=== PATIENT | female | born 1995 | race Caucasian/White ===

== ENCOUNTER 2016-06-26 12:35 | Emergency (ER) | payer OTHER ==
[2016-06-26 14:22] LABS: Appearance,Urine Clear (Clear); Bilirubin,Urine Negative (Negative); Glucose,Urine (UA) Negative (Negative); Ketones,Urine Negative (Negative); Leukocyte Esterase,Urine Negative (Negative); Nitrite,Urine Negative (Negative); PH, Urine 6.5 (5.0-8.0); Protein,Urine Negative (Negative); Specific Gravity,Urine 1.025 (1.001-1.035); UA Billing (MACRO vs. MICRO) CHEM; Urobilinogen,Urine <2.0 mg/dL (<2.0)
--- NOTE | 2016-06-26 14:34 | ED ---
Female Urogenital HPI - General Chief complaint: Vaginal Bleeding Stated complaint: Female Time Seen by Provider: 06/26/16 14:07 Source: patient, RN notes reviewed Mode of arrival: ambulatory Limitations: no limitations - History of Present Illness Initial comments: 20-year-old female presents emergency Department chief complaint of concern for . Patient states she started her menstrual period yesterday was light and spotting and then today it was heavier than normal. Patient states she is concerned that she may be so she thought that she should be seen. Patient states did not do any tests at home. Patient denies any abdominal pain any nausea or vomiting. Patient states she just needs now she is or not.Patient denies any recent fever, chills, shortness of breath , chest pain, back pain, abdominal pain, nausea vomiting, numbness or tingling, dysuria or hematuria, constipation or diarrhea, headaches or visual changes, or any other current symptoms. Last Menstrual Period: 05/27/16 - Related Data Home Medications Medication Instructions Recorded Confirmed No Known Home Medications [No 06/26/16 06/26/16 Known Home Medications] Allergies Allergy/AdvReac Type Severity Reaction Status Date / Time cat dander Allergy Swelling Verified 06/26/16 14:17 soybean AdvReac Itching Verified 06/26/16 14:17 Review of Systems ROS Statement: Those systems with pertinent positive or pertinent negative responses have been documented in the HPI. ROS Other: All systems not noted in ROS Statement are negative. Past Medical History Past Medical History: No Reported History Additional Past Medical History / Comment(s): CLUB FEET AT History of Any Multi-Drug Resistant Organisms: None Reported Past Surgical History: No Surgical Hx Reported Past Psychological History: Depression Smoking Status: Never smoker Past Alcohol Use History: None Reported Past Drug Use History: None Reported General Exam Limitations: no limitations General appearance: alert, in no apparent distress ENT exam: Present: normal exam, mucous membranes moist Neck exam: Present: normal inspection. Absent: tenderness, meningismus, lymphadenopathy Respiratory exam: Present: normal lung sounds bilaterally. Absent: respiratory distress, wheezes, rales, rhonchi, stridor Cardiovascular Exam: Present: regular rate, normal rhythm, normal heart sounds. Absent: systolic murmur, diastolic murmur, rubs, gallop, clicks Back exam: Present: normal inspection Neurological exam: Present: alert, oriented X3, CN II-XII intact. Absent: motor sensory deficit Psychiatric exam: Present: normal affect, normal mood Skin exam: Present: warm, dry, intact, normal color. Absent: rash Course Vital Signs 06/26/16 13:40 Temperature 98.0 F Pulse Rate 81 Respiratory 18 Rate Blood Pressure 121/75 O2 Sat by Pulse 99 Oximetry Medical Decision Making - Medical Decision Making 20-year-old female presents for concerns with . At this time we discussed that her urine is showing that she is not . We did discuss following up with a repeat test in one week to reevaluate. At this time patient was offered a pelvic exam blood work to further evaluate her vaginal bleeding. She states that she believes is just her menstrual cycle. She denies any heavy bleeding such as going through a pad an hour so she said that she does feel comfortable going home. We discussed return parameters and follow-up and all patient's questions. She stated that she understood. She will be discharged. - Lab Data Lab Results 06/26/16 06/26/16 Range/Units 13:40 13:40 Urine Color Yellow Urine Appearance Clear (Clear) Urine pH 6.5 (5.0-8.0) Ur Specific [place] 1.025 (1.001-1.035) Urine Protein Negative (Negative) Urine Glucose (UA) Negative (Negative) Urine Ketones Negative (Negative) Urine Blood Negative (Negative) Urine Nitrate Negative (Negative) Urine Bilirubin Negative (Negative) Urine Urobilinogen <2.0 (<2.0) mg/dL Ur Leukocyte Esterase Negative (Negative) Urine HCG, Qual Not Detected (Not Detectd) Disposition Clinical Impression: Menorrhagia Disposition: HOME SELF-CARE Condition: Stable Instructions: Menstruation (ED) Additional Instructions: Please use medication as discussed. Please follow up with family doctor if symptoms have not improved over the next two days. Please return to the emergency room if your symptoms increase or worsen or for any other concerns. Referrals: None,Stated [Primary Care Provider] - 1-2 days Ally Lazar MD [STAFF PHYSICIAN] - 1-2 days Time of Disposition: 14:34
[2016-06-26 14:48] VITALS: BP 123/79; PULSE 94; RESP 20; TEMP 98
== END 2016-06-26 14:49 | disposition home or self-care (01) ==
LOC: EC 12:35
DX: N92.0 Excessive and frequent menstruation with regular cycle (principal); Z91.048 Other nonmedicinal substance allergy status; Z91.018 Allergy to other foods
CPT/HCPCS: 81003; 81025; 99284

== ENCOUNTER 2018-05-01 03:43 | Outpatient (CLI) | payer OTHER ==
[2018-05-01] MEDS ORDERED: ONDANSETRON 4 MG/2 ML VIAL IVP STA (03:57)
[2018-05-01] MEDS ORDERED: LACTATED RINGERS 1,000 ML IV SCH (04:00)
[2018-05-01 04:13] LABS: Appearance,Urine Cloudy (Clear); Bilirubin,Urine Negative (Negative); Blood,Urine Negative (Negative); Color,Urine Yellow; Glucose,Urine (UA) Negative (Negative); Ketones,Urine 1+ (Negative); Leukocyte Esterase,Urine Large (Negative); Mucus,Urine Rare /hpf; Nitrite,Urine Negative (Negative); PH, Urine 6.5 (5.0-8.0); Protein,Urine Trace (Negative); RBC,Urine 6 /hpf (0-5); Specific Gravity,Urine 1.012 (1.001-1.035); Squamous Epithelial Cell,Urine 32 /hpf (0-4); Urobilinogen,Urine <2.0 mg/dL (<2.0); WBC,Urine 10 /hpf (0-5)
[2018-05-01 04:15] LABS: Basophils % (A) 0 %; Eosinophils # (A) 0.1 k/uL (0-0.7); Eosinophils % (A) 1 %; HCT 33.3 % (34.0-46.0); HGB 11.8 gm/dL (11.4-16.0); Lymphocytes # (A) 1.2 k/uL (1.0-4.8); Lymphocytes % (A) 13 %; MCH 33.1 pg (25.0-35.0); MCHC 35.3 g/dL (31.0-37.0); MCV 93.9 fL (80.0-100.0); Monocytes # (A) 0.4 k/uL (0-1.0); Monocytes % (A) 4 %; Neutrophils # (A) 7.6 k/uL (1.3-7.7); Neutrophils % (A) 80 %; Platelet Count 180 k/uL (150-450); RBC 3.55 m/uL (3.80-5.40); RDW 13.4 % (11.5-15.5); WBC 9.6 k/uL (3.8-10.6)
[2018-05-01 04:34] VITALS: BP 124/84; PULSE 102; RESP 16; TEMP 98
--- NOTE | 2018-05-05 18:23 | P.MSEPDOC ---
Presenting Problems - Arrival Data Date of Arrival on Unit: 05/01/18 Time of Arrival on Unit: 03:43 Mode of Transport: Wheelchair - Complaint OB-Reason for Admission/Chief Complaint: Acute Nausea/Vomiting, Headache Comment: nausea since this weekend, headache on and off Medical History - Information : 1 Para: 0 Term: 0 : 0 Abortions: Spontaneous or Elective: 0 Number of Living Children: 0 - Gestational Age Gestational Age by MEHUL (wks/days): 24 Weeks and 1 Days Review of Systems - Review of Systems Constitutional: No problems Breast: No problems ENT: No problems Cardiovascular: No problems Respiratory: No problems Gastrointestinal: No problems Genitourinary: No problems Musculoskeletal: No problems Neurological: No problems Skin: No problems Vital Signs - Temperature Temperature: 98.0 F Temperature Source: Temporal Artery Scan - Pulse Right Sitting Brachial Pulse Rate: 102 Pulse Assessment Method: Automatic Cuff - Respirations Respiratory Rate: 16 O2 Sat by Pulse Oximetry: 100 - Blood Pressure Right Arm Blood Pressure: 124/84 Blood Pressure Mean: 97 Blood Pressure Source: Automatic Cuff Medical Screen Scoring (Pre) - Cervical Exam Dilation: Exam Deferred Effacement: Exam Deferred Membranes: Intact - Uterine Contractions Frequency: N/A - Maternal Vital Signs Maternal Temperature: N/A Maternal Blood Pressure: N/A Signs of Preeclampsia: N/A Maternal Respirations: N/A - Maternal Trauma Maternal Trauma: N/A - Assessment Baseline FHR: 140 Heart Rate - NICHD Category: Category I (Normal) = 0 Position: N/A Station: N/A - Total Score Total Score (Pre): 0 - Level of Risk Level of Risk: Low (0-5) Physician Notification (Pre) - Physician Notified Physician Notified Date: 05/01/18 Physician Notified Time: 04:00 Physician/Practitioner Notifed:: Tremramos New Order Received: Yes - Notification Comment Comment: orders for IV bolus of LR, CBC, UA and IV zofran 4 mg Disposition - Disposition OB Disposition: Discharge to home, Written follow up instructions reviewed Discharge Date: 05/01/18 Discharge Time: 04:50 I agree with the RN Medical Screening Exam: Yes Risk & Benefit of care provided described in d/c instruction: Yes Diagnosis: VOMITING OF , UNSPECIFIED
== END 2018-05-01 04:50 | disposition home or self-care (01) ==
LOC: FBPOP 03:43
PROVIDERS: ATTEND Obstetrics & Gynecology Obstetrics
DX: O21.2 Late vomiting of pregnancy (principal); Z3A.24 24 weeks gestation of pregnancy
CPT/HCPCS: 96360; 96375; 85025; 81001; G0463; J2405; 99214

== ENCOUNTER 2018-08-24 14:48 | Inpatient (IN) | payer OTHER ==
[2018-08-24] MEDS ORDERED: DINOPROSTONE 10 MG INSERT.ER VAGINAL ONE (14:53)
[2018-08-24] MEDS ORDERED: BUTORPHANOL 1 MG/ML 1 ML VIAL IV PRN (14:53)
[2018-08-24] MEDS ORDERED: LACTATED RINGERS 1,000 ML IV SCH (15:00)
[2018-08-24 15:05] VITALS: BMI 39.4
--- NOTE | 2018-08-24 17:19 | P.HPOB ---
History of Present Illness H&P Date: 08/24/18 Chief Complaint: IUP @ 40 5/7 weeks This is a 23-year-old 1 para 0 at 40-5/7 weeks that presents to labor and delivery for induction of labor secondary to postdates. Patient was seen in the office today NST was done reassuring but nonreactive modified BPP was done o nce again reassuring. Patient presented to labor and delivery reactive NST was obtained. Patient denies contractions loss of fluid or vaginal bleeding. Patient has been receiving routine care with myself. On by mouth bloodwork should a blood type of A+, rubella immune, RPR nonreactive, hepatitis B surface antigen negative, HIV negative, GBS negative. She did fail her 1 hour Glucola with a result of 157 and subsequently passed her 3 hour GTT. Review of Systems Constitutional: Denies chills, Denies fatigue, Denies fever Ears, nose, mouth and throat: Denies headache Cardiovascular: Reports leg edema Respiratory: Denies dyspnea Gastrointestinal: Denies constipation, Denies diarrhea, Denies nausea, Denies vomiting Genitourinary: Reports Past Medical History Past Medical History: No Reported History Additional Past Medical History / Comment(s): CLUB FEET AT History of Any Multi-Drug Resistant Organisms: None Reported Past Surgical History: No Surgical Hx Reported Past Anesthesia/Blood Transfusion Reactions: No Reported Reaction Past Psychological History: Anxiety, Depression Smoking Status: Current some day smoker Past Alcohol Use History: None Reported Past Drug Use History: None Reported - Past Family History Mother Family Medical History: No Reported History Medications and Allergies Allergies Allergy/AdvReac Type Severity Reaction Status Date / Time cat dander Allergy Swelling Verified 05/01/18 03:52 soybean AdvReac Itching Verified 05/01/18 03:52 Exam Osteopathic Statement: *. No significant issues noted on an osteopathic structural exam other than those noted in the History and Physical/Consult. Vital Signs Temp Pulse Resp BP 08/24/18 14:52 96.8 F L 72 14 128/73 Intake and Output 08/24/18 08/24/18 08/24/18 06:59 14:59 22:59 Other: Weight 104.326 kg Started physical exam is performed in this patient in general this a well- nourished well-developed female in no acute distress. Patient notes nonlabored breathing in her heart has a regular rate and rhythm, her abdomen is noted be gravid and appropriate for gestational age. heart tones are reactive category 1, on cervical exam she is 1-2, 50, -3 soft and anterior, Cervidil was placed without difficulty. Assessment and Plan (1) Term Current Visit: Yes Status: Acute Code(s): Z34.80 - ENCOUNTER FOR SUPRVSN OF NORMAL , UNSP TRIMESTER SNOMED Code(s): 17936042 Plan: Induction of labor was begun with Cervidil, we'll plan Pitocin augmentation in the morning after Cervidil is removed.
[2018-08-24 17:31] LABS: Basophils % (A) 0 %; Eosinophils # (A) 0.1 k/uL (0-0.7); Eosinophils % (A) 1 %; HCT 34.6 % (34.0-46.0); HGB 10.8 gm/dL (11.4-16.0); Hypochromasia Slight; Lymphocytes # (A) 1.6 k/uL (1.0-4.8); Lymphocytes % (A) 21 %; MCH 27.1 pg (25.0-35.0); MCHC 31.3 g/dL (31.0-37.0); MCV 86.6 fL (80.0-100.0); Monocytes # (A) 0.5 k/uL (0-1.0); Monocytes % (A) 7 %; Neutrophils # (A) 5.1 k/uL (1.3-7.7); Neutrophils % (A) 68 %; Platelet Count 192 k/uL (150-450); RBC 3.99 m/uL (3.80-5.40); RDW 14.8 % (11.5-15.5); WBC 7.4 k/uL (3.8-10.6)
[2018-08-25] MEDS ORDERED: TERBUTALINE 1 MG/ML VIAL SQ PRN (05:50)
[2018-08-25] MEDS ORDERED: CARBOPROST TROMETHAMINE 250 MCG/ML 1 ML AMP IM PRN (05:50)
[2018-08-25] MEDS ORDERED: OXYTOCIN 10 UNIT/ML 1 ML VIAL IM PRN (05:50)
[2018-08-25] MEDS ORDERED: LIDOCAINE 0.5% (PF) 5 MG/ML (50 ML SDV) SQ PRN (05:50)
[2018-08-25] MEDS ORDERED: METHYLERGONOVINE 0.2 MG/ML 1 ML AMP IM PRN (05:50)
[2018-08-25] MEDS: LACTATED RINGERS 1,000 ML IV SCH ×3 (05:55→23:34)
[2018-08-25] MEDS: OXYTOCIN 30 UNITS/500 ML NS 30 UNIT in SALINE 1 500ML.BAG IV SCH (05:56)
[2018-08-25] MEDS: BUTORPHANOL 1 MG/ML 1 ML VIAL IV PRN ×2 (13:25→15:32)
[2018-08-25] MEDS ORDERED: ceFAZolin IN SWFI 2 GM/20 ML SYRINGE IVP ONE (16:53)
[2018-08-25] MEDS ORDERED: CITRIC ACID-SODIUM CITRATE 15 ML CUP PO ONE (16:53)
[2018-08-25] MEDS ORDERED: ePHEDrine SULFATE/0.9% NACL/PF 50 MG/5 ML SYRINGE IV ONE (17:10)
[2018-08-25] MEDS ORDERED: ONDANSETRON 4 MG/2 ML VIAL ONE (17:10)
[2018-08-25] MEDS ORDERED: OXYTOCIN 10 UNIT/ML 1 ML VIAL ONE (17:10)
[2018-08-25] MEDS ORDERED: MORPHINE SULFATE (PF) 0.3 MG/0.3 ML SYR ONE (17:10)
[2018-08-25] MEDS ORDERED: ACETAMINOPHEN IV (For NPO) 1,000 MG in EMPTY BAG 1 BAG IVPB ONE (17:59)
[2018-08-25] MEDS ORDERED: METOCLOPRAMIDE 5 MG/ML 2 ML VIAL IVP PRN (17:59)
[2018-08-25] MEDS ORDERED: diphenhydrAMINE 50 MG/ML 1 ML VIAL IVP PRN (17:59)
[2018-08-25] MEDS ORDERED: NALOXONE 0.4 MG/ML 1 ML VIAL IV PRN (17:59)
[2018-08-25] MEDS ORDERED: diphenhydrAMINE 25 MG CAP PO PRN (17:59)
[2018-08-25] MEDS ORDERED: ZOLPIDEM 5 MG TAB PO PRN (17:59)
[2018-08-25] MEDS ORDERED: diphenhydrAMINE 50 MG CAP PO PRN (17:59)
[2018-08-25] MEDS ORDERED: ACETAMINOPHEN TAB 325 MG TAB PO PRN (17:59)
[2018-08-25] MEDS ORDERED: ONDANSETRON 4 MG/2 ML VIAL IVP PRN (17:59)
[2018-08-25] MEDS ORDERED: OXYTOCIN 20 UNITS/1000 ML NS 1,000 ML IV SCH (18:00)
--- NOTE | 2018-08-25 18:03 | P.OP ---
Date of Procedure: 08/25/18 Preoperative Diagnosis: IUP 40 5/7 weeks, Arrest of 1 stage of labor Postoperative Diagnosis: same Procedure(s) Performed: primary LTCS Anesthesia: spinal Surgeon: Louise Ardon Scan Coordinator #1: Jodi Escalera Estimated Blood Loss (ml): 600 IV fluids (ml): 500 Urine output (ml): 50 Pathology: other (Placenta) Condition: stable Disposition: observation Indications for Procedure: Arrest of labor at 4 cm since 8 AM this morning. Operative Findings: Normal uterus tubes and ovaries. Female infant weight of 7 lbs. 3 oz. with Apgars of 9 and 9 at one and 5 minutes or sexually. Description of Procedure: The patient was prepped and draped in the usual fashion after spinal anesthesia was administered by the anesthesia department A Pfannenstiel incision was made and extended of the abdominal cavity without difficulty. The bladder peritoneum was elevated and incised and reflected distally. A 2 cm incision was made in the transverse plane of the lower uterine segment to enter the uterus at which time clear fluid was noted. The incision was extended in both directions bluntly. The head was encountered within the field and delivered up and through the incision where the nose and mouth were thoroughly suctioned. Remainder of the was delivered onto the surgical field where the cord was doubly clamped, cut, and the was passed for resuscitative measures with weight and Apgars as noted above. A segment of cord was then doubly clamped, cut, and set aside should cord gases become necessary. The placenta was delivered manually, intact, and was grossly normal with a grossly normal three- vessel cord. The uterus was exteriorized and the interior cavity of the uterus swept of any remaining placental and membranous fragments with a laparotomy sponge. The margins of the incision were grasped with Vo clamps and the incision closed in 2 layers. First layer was a running locking layer of 0 Vicryl from margin to margin followed by a second layer of imbricating 0 Vicryl from margin to margin. Any small points of bleeding were then made hemostatic with the Bovie. Once hemostasis was achieved, the posterior cul-de-sac was suctioned with a guard and the uterine and ovarian findings are as noted above. The uterus was replaced within the abdominal cavity and the gutters swept of any remaining blood fluid or clot. The incision was again reexamined and hemostasis was noted to be excellent. Any small point of bleeding were made hemostatic with the Bovie. Once hemostasis was achieved the parietal peritoneum was loosely reapproximated. The layer of muscles were examined and made hemostatic with the Bovie. Attention was then turned to the fascia which was closed with 2 running stitches of 0 Vicryl proceeding from the lateral margins to the midpoint. The subcutaneous tissues were irrigated, made hemostatic with the Bovie, and reapproximated with a running stitch of 30 Vicryl. The skin was scott pproximated with 4-0 vicryl . Estimated blood loss for the case was approximately 600 mL. All sponge instrument and needle counts are correct. There were no complications. The patient tolerated the procedure well and proceeded to the recovery room in stable condition. Both mother and are resting comfortably in recovery.
[2018-08-25] MEDS: diphenhydrAMINE 50 MG/ML 1 ML VIAL IVP PRN (19:07)
[2018-08-25] MEDS: SENNOSIDES-DOCUSATE SODIUM 1 EACH TAB PO SCH (20:00)
[2018-08-26] MEDS: IBUPROFEN 600 MG TAB PO PRN ×3 (02:09→15:05)
[2018-08-26] MEDS: diphenhydrAMINE 50 MG/ML 1 ML VIAL IVP PRN (02:22)
[2018-08-26] MEDS: LACTATED RINGERS 1,000 ML IV SCH ×2 (03:46→03:47)
[2018-08-26 07:52] LABS: HCT 31.1 % (34.0-46.0); Hypochromasia Moderate; Lymphocytes % (A) 11 %; MCHC 30.1 g/dL (31.0-37.0); MCV 86.6 fL (80.0-100.0); Neutrophils % (A) 79 %; Platelet Count 158 k/uL (150-450); RBC 3.59 m/uL (3.80-5.40); WBC 8.5 k/uL (3.8-10.6)
[2018-08-26 07:53] LABS: Basophils % (A) 0 %; Eosinophils # (A) 0.1 k/uL (0-0.7); Eosinophils % (A) 1 %; Monocytes # (A) 0.5 k/uL (0-1.0); Monocytes % (A) 6 %; Neutrophils # (A) 6.8 k/uL (1.3-7.7)
[2018-08-26 08:06] LABS: HGB 9.3 gm/dL (11.4-16.0)
--- NOTE | 2018-08-26 08:07 | P.PNOBGPC ---
Subjective - Subjective Principal diagnosis: POD 1 LTCS Interval history: Patient has done well overnight. She is ambulating without difficulty, Awaiting spontaneous void since Franco was discontinued.. She did states her lochia is moderate. She is breast-feeding. She denies concerns this morning. is doing well and is at the bedside. Patient reports: Reports appetite normal, Reports voiding normally, Reports pain well controlled, Reports ambulating normally : doing well Objective - Vital Signs Latest vital signs: Vital Signs Temp Pulse Resp BP Pulse Ox 08/26/18 05:00 16 08/26/18 04:00 98.4 F 75 16 94/57 08/26/18 03:00 16 08/26/18 01:00 16 08/26/18 00:00 98.9 F 102 H 16 103/74 97 08/25/18 23:00 16 98 08/25/18 21:02 16 08/25/18 20:03 99.3 F 95 16 109/64 98 08/25/18 19:33 87 16 132/58 100 08/25/18 19:02 83 18 100/63 99 08/25/18 18:48 97.6 F 90 16 105/59 95 08/25/18 18:33 74 18 99/53 96 08/25/18 18:18 75 16 91/50 96 08/25/18 18:03 97.9 F 89 16 112/59 98 08/25/18 18:02 16 98 Intake and Output 08/25/18 08/26/18 08/26/18 22:59 06:59 14:59 Other: Voiding Method Indwelling Catheter Indwelling Catheter # Voids 0 - Exam Lungs: bilateral: normal Extremities: Present: normal, edema Abdomen: Present: normal appearance, soft Incision: Present: normal, dry, intact Uterus: Present: normal, firm Assessment and Plan (1) Term Current Visit: Yes Status: Acute Code(s): Z34.80 - ENCOUNTER FOR SUPRVSN OF NORMAL , UNSP TRIMESTER SNOMED Code(s): 67229053 (2) S/P section Current Visit: Yes Status: Acute Code(s): Z98.891 - HISTORY OF UTERINE SCAR FROM PREVIOUS SURGERY SNOMED Code(s): 556161708 (3) Arrested labor Current Visit: Yes Status: Acute Code(s): O62.1 - SECONDARY UTERINE INERTIA SNOMED Code(s): 89506009 Plan: Will continue routine postoperative care. Anticipate discharge home tomorrow
[2018-08-26] MEDS: SENNOSIDES-DOCUSATE SODIUM 1 EACH TAB PO SCH (09:08)
[2018-08-26] MEDS: PRENATAL VIT-IRON-FOLIC ACID 1 EACH CAP PO SCH (13:03)
[2018-08-26] MEDS: HYDROcodone/APAP 5-325MG 1 EACH TAB PO PRN ×2 (16:30→21:53)
--- NOTE | 2018-08-26 20:36 | P.PN ---
Progress Note - Text Progress Note Date: 08/26/18 Postoperative day 1 status post section under spinal anesthesia and in trathecal Duramorph for postoperative analgesia.The patient is doing well, there is mild generalized skin itching. There are no other anesthesia related complications. The patient denies any paresthesia or weakness in the lower extremities. Further management as per the patient primary team.
[2018-08-27] MEDS: SENNOSIDES-DOCUSATE SODIUM 1 EACH TAB PO SCH ×2 (01:31→08:56)
[2018-08-27] MEDS: OXYTOCIN 30 UNITS/500 ML NS 30 UNIT in SALINE 1 500ML.BAG IV SCH (01:31)
[2018-08-27] MEDS: HYDROcodone/APAP 5-325MG 1 EACH TAB PO PRN (07:33)
--- NOTE | 2018-08-27 08:19 | P.DS ---
Providers Date of admission: 08/24/18 14:48 Expected date of discharge: 08/27/18 Attending physician: Louise Ardon Primary care physician: Stated None - Discharge Diagnosis(es) (1) Term Current Visit: Yes Status: Acute (2) S/P section Current Visit: Yes Status: Acute (3) Arrested labor Current Visit: Yes Status: Acute Hospital Course: This is a very pleasant 23-year-old 1 para 0 at 40-5/7 weeks that presented to labor and delivery for induction of labor secondary to postdates. Patient was admitted Cervidil induction was begun. Throughout the night patient noted some cramping in the morning she was noted to be 4 cm amniotomy was performed clear fluid was obtained. Pitocin augmentation of labor was begun prior to amniotomy. Patient progressed through the day noting strong regular contractions and by 1700 no cervical change was noted she remained 4 cm throughout the entire day. Decision was made for primary low transverse section secondary to arrest of first stage of labor. Surgery was reviewed questions were answered and patient was taken back to the operating suite. The was performed without difficulty for further details on the please see the operative report patient delivered a viable female infant weight of 7 lbs. 3 oz. Apgars of 9 and 9 at one and 5 minutes respectively. Patient's postoperative course has been uneventful. On this postop day #2 she is ambulating and voiding without difficulty. She is breast-feeding without difficulty. She states her lochia is moderate. She denies concerns with pain control. She is tolerating a regular diet without nausea or vomiting. She does wish discharge home today Patient Condition at Discharge: Good Plan - Discharge Summary New Discharge Prescriptions: No Action Pedi Multivit No.25/Folic Acid [Flintstones Multivit Chew Tab] 2 tab PO DAILY Discharge Medication List Pedi Multivit No.25/Folic Acid [Flintstones Multivit Chew Tab] 2 tab PO DAILY 08/24/18 [History] Follow up Appointment(s)/Referral(s): Louise Ardon DO [Doctor of Osteopathic Medicine] - 2 Weeks Patient Instructions/Handouts: (DC), (GEN) Discharge Disposition: HOME SELF-CARE
[2018-08-27 09:02] VITALS: BP 120/70; PULSE 79; RESP 16; TEMP 97.8
[2018-08-27] MEDS: IBUPROFEN 600 MG TAB PO PRN ×2 (09:16)
[2018-08-27] MEDS: PRENATAL VIT-IRON-FOLIC ACID 1 EACH CAP PO SCH (12:20)
== END 2018-08-27 14:00 | disposition home or self-care (01) | DRG 788 ==
LOC: 4FBP 14:48
PROVIDERS: ADMIT Obstetrics & Gynecology Obstetrics; ATTEND Obstetrics & Gynecology Obstetrics
PROC: 3E033VJ Introduction of Other Hormone into Peripheral Vein, Percutaneous Approach (ICD-10-PCS; 2018-08-24)
PROC: 10907ZC Drainage of Amniotic Fluid, Therapeutic from Products of Conception, Via Natural or Artificial Opening (ICD-10-PCS; 2018-08-24)
PROC: 10D00Z1 Extraction of Products of Conception, Low, Open Approach (ICD-10-PCS; principal; 2018-08-25 17:25)
DX: O48.0 Post-term pregnancy (principal); O99.334 Smoking (tobacco) complicating childbirth; O62.1 Secondary uterine inertia; F17.200 Nicotine dependence, unspecified, uncomplicated; O99.62 Diseases of the digestive system complicating childbirth; K21.9 Gastro-esophageal reflux disease without esophagitis; J30.81 Allergic rhinitis due to animal (cat) (dog) hair and dander; Z37.0 Single live birth; Z3A.40 40 weeks gestation of pregnancy; Z79.899 Other long term (current) drug therapy; Z91.048 Other nonmedicinal substance allergy status; Z87.76 Personal history of (corrected) congenital malformations of integument, limbs and musculoskeletal system; Z86.59 Personal history of other mental and behavioral disorders
CPT/HCPCS: 85025; 86850; 86900; 86901

== ENCOUNTER 2019-02-11 21:27 | Emergency (ER) | payer OTHER ==
[2019-02-11 21:53] VITALS: RESP 16
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
--- NOTE | 2019-02-12 00:18 | US ---
EXAM: US First Trimester, Transabdominal CLINICAL HISTORY: Abdominal injury gravid female. Abdominal pain. TECHNIQUE: Real-time transabdominal obstetrical ultrasound of the maternal pelvis and a first trimester with image documentation. COMPARISON: None. FINDINGS: Gestation: Single viable intrauterine gestation corresponding to a gestational age of 10 weeks 1 day. [place]-rump length measures 3.22 cm. heart rate is 172 bpm Placenta/amniotic fluid: A 1.2 cm hypoechoic area is noted possibly representing a small subchorionic bleed. This finding is equivocal requires follow-up. Uterus/cervix: Uterus measures 10.8 x 6.2 x 9.3 cm. 2.9 x 1.2 x 1 cm probable anterior fundal fibroid with intramural and subserosal components. The cervix is not visualized. Ovaries: Left ovary measures 3.2 x 2.1 x 1.8 cm. Right ovary is not visualized. Free fluid: No free fluid in the posterior cul-de-sac. IMPRESSION: Single viable intrauterine gestation corresponding to a gestational age of 10 weeks 1 day. heart rate is 172 bpm. Possible small subchorionic bleed measuring 1.2 cm. This finding is equivocal requires follow-up. The cervix was not visualized. Probable uterine fibroid.
[2019-02-12 00:33] VITALS: BP 100/63; PULSE 79; TEMP 99.3
== END 2019-02-12 00:31 | disposition home or self-care (01) ==
LOC: EC 21:27
DX: O9A.311 Physical abuse complicating pregnancy, first trimester (principal); R10.30 Lower abdominal pain, unspecified; O99.89 Other specified diseases and conditions complicating pregnancy, childbirth and the puerperium; Q66.89 Other specified congenital deformities of feet; O99.331 Smoking (tobacco) complicating pregnancy, first trimester; F17.200 Nicotine dependence, unspecified, uncomplicated; Z91.018 Allergy to other foods; Z91.048 Other nonmedicinal substance allergy status; Z98.890 Other specified postprocedural states; Y07.03 Male partner, perpetrator of maltreatment and neglect; Y93.89 Activity, other specified; Y92.009 Unspecified place in unspecified non-institutional (private) residence as the place of occurrence of the external cause; Z3A.10 10 weeks gestation of pregnancy
CPT/HCPCS: 76801; 99284

== ENCOUNTER → 2019-03-01 | Outpatient (CLI) | payer OTHER ==
[2019-03-01 16:59] LABS: HCT 41.3 % (34.0-46.0); HGB 13.2 gm/dL (11.4-16.0); MCH 29.6 pg (25.0-35.0); MCHC 31.9 g/dL (31.0-37.0); MCV 92.6 fL (80.0-100.0); Mean Platelet Volume 8.7; Platelet Count 198 k/uL (150-450); RBC 4.45 m/uL (3.80-5.40); RDW 14.6 % (11.5-15.5); WBC 8.6 k/uL (3.8-10.6)
[2019-03-02 00:47] LABS: HIV 1 AB Non-Reactive (Non-Reactive); HIV AB P24 Non-Reactive (Non-Reactive); HIV P24 AG Non-Reactive (Non-Reactive)
[2019-03-02 01:20] LABS: Hepatitis B Surface Antigen Non-Reactive (Non-Reactive)
[2019-03-02 01:29] LABS: African American GFR (CKD) 159.2 (60.0-200.0)
[2019-03-02 02:08] LABS: T3, Uptake 18 % (23-37)
[2019-03-02 04:45] LABS: Toxoplasma Antibody (IgG) <3.0 IU/mL (<7.2); Toxoplasma Antibody (IgM) <3.0 AU/mL (<8.0)
== END | disposition home or self-care (01) ==
LOC: LABWHC1 16:01
PROVIDERS: ATTEND Obstetrics & Gynecology
DX: Z34.81 Encounter for supervision of other normal pregnancy, first trimester (principal)
CPT/HCPCS: 36415; 82565; 82947; 84439; 84443; 84479; 85027; 86762; 86777; 86778; 86780; 86850; 86900; 86901; 87340; 87390

== ENCOUNTER 2019-08-05 12:38 | Outpatient (CLI) | payer OTHER ==
[2019-08-05 15:56] VITALS: BP 109/67; PULSE 86; RESP 16; TEMP 98.3
--- NOTE | 2019-08-08 10:07 | P.MSEPDOC ---
Presenting Problems - Arrival Data Date of Arrival on Unit: 08/05/19 Time of Arrival on Unit: 12:42 Mode of Transport: Ambulatory - Complaint OB-Reason for Admission/Chief Complaint: Other Comment: pt arrived c/o slipping on ice around 1130 this afternoon pt denies any direct blows to the abd area states she feel more on left side and buttucks and caught herself with her arm Medical History - Information : 2 Para: 1 Term: 1 : 0 Abortions: Spontaneous or Elective: 0 Number of Living Children: 1 - Gestational Age Gestational Age by MEHUL (wks/days): 34 Weeks and 5 Days Review of Systems - Review of Systems Constitutional: No problems Breast: No problems ENT: No problems Cardiovascular: No problems Respiratory: No problems Gastrointestinal: No problems Genitourinary: No problems Musculoskeletal: No problems Neurological: No problems Skin: No problems Vital Signs - Temperature Temperature: 98.3 F Temperature Source: Oral - Pulse Right Brachial Pulse Rate: 86 Pulse Assessment Method: Automatic Cuff - Respirations Respiratory Rate: 16 Oxygen Delivery Method: Room Air - Blood Pressure Right Arm Blood Pressure: 109/67 Blood Pressure Mean: 81 Blood Pressure Source: Automatic Cuff Medical Screen Scoring (Pre) - Cervical Exam Dilation: Exam Deferred Effacement: Exam Deferred Membranes: Intact - Uterine Contractions Frequency: N/A Duration: N/A Intensity: N/A - Maternal Vital Signs Maternal Temperature: N/A Maternal Blood Pressure: N/A Signs of Preeclampsia: N/A Maternal Respirations: N/A - Maternal Trauma Maternal Trauma: N/A - Assessment - Baby A Baseline FHR: 130 Heart Rate - NICHD Category: Category I (Normal) = 0 NST: Reactive Position: N/A - Total Score - Baby A Total Score - Baby A: 0 - Total Score - Baby B Total Score - Baby B: 0 - Total Score - Baby C Total Score - Baby C: 0 - Level of Risk - Baby A Level of Risk - Baby A: Low (0-5) - Level of Risk - Baby B Level of Risk - Baby B: Low (0-5) - Level of Risk - Baby C Level of Risk - Baby C: Low (0-5) Physician Notification (Pre) - Physician Notified Physician Notified Date: 08/05/19 Physician Notified Time: 14:00 New Order Received: Yes - Notification Comment Comment: continue to keep on monitor until 1530 if no contractions or bleeding and reactive NST may discharge to home with instructions Disposition - Disposition OB Disposition: Discharge to home Discharge Date: 08/05/19 Discharge Time: 15:45 I agree with the RN Medical Screening Exam: Yes Risk & Benefit of care provided described in d/c instruction: Yes Diagnosis: FALL ON SAME LEVEL DUE TO ICE AND SNOW, INITIAL ENCOUNTER
== END 2019-08-05 15:45 | disposition home or self-care (01) ==
LOC: FBPOP 12:38
PROVIDERS: ATTEND Obstetrics & Gynecology
DX: O26.893 Other specified pregnancy related conditions, third trimester (principal)
CPT/HCPCS: 59025; G0463; 99213

== ENCOUNTER 2019-09-07 05:48 | Inpatient (IN) | payer OTHER ==
[2019-09-02 13:17] VITALS: BMI 39.3
[2019-09-07] MEDS ORDERED: LACTATED RINGERS 1,000 ML IV ONE (06:02)
[2019-09-07] MEDS ORDERED: CITRIC ACID-SODIUM CITRATE 15 ML CUP PO ONE (06:02)
[2019-09-07] MEDS: LACTATED RINGERS 1,000 ML IV SCH ×2 (06:07→13:57)
[2019-09-07 06:34] LABS: Basophils % (A) 0 %; Eosinophils # (A) 0.2 k/uL (0-0.7); Eosinophils % (A) 2 %; HCT 34.3 % (34.0-46.0); HGB 10.7 gm/dL (11.4-16.0); Hypochromasia Slight; Lymphocytes # (A) 1.3 k/uL (1.0-4.8); Lymphocytes % (A) 20 %; MCH 25.6 pg (25.0-35.0); MCHC 31.2 g/dL (31.0-37.0); MCV 81.8 fL (80.0-100.0); Mean Platelet Volume 9.8; Monocytes # (A) 0.3 k/uL (0-1.0); Monocytes % (A) 5 %; Neutrophils # (A) 4.7 k/uL (1.3-7.7); Neutrophils % (A) 69 %; Platelet Count 189 k/uL (150-450); RDW 15.6 % (11.5-15.5); WBC 6.8 k/uL (3.8-10.6)
[2019-09-07] MEDS ORDERED: ONDANSETRON 4 MG/2 ML VIAL ONE (07:47)
[2019-09-07] MEDS ORDERED: MORPHINE SULFATE (PF) 0.3 MG/0.3 ML SYR ONE (07:47)
[2019-09-07] MEDS ORDERED: KETOROLAC 30 MG/ML 1 ML VIAL ONE (07:47)
[2019-09-07] MEDS ORDERED: OXYTOCIN 10 UNIT/ML 1 ML VIAL ONE (07:47)
[2019-09-07] MEDS ORDERED: ePHEDrine SULFATE/0.9% NACL/PF 50 MG/5 ML SYRINGE IV ONE (07:47)
[2019-09-07] MEDS ORDERED: PHENYLEPHRINE-0.9% NACL SYG 1 MG/10 ML SYRINGE ONE (07:47)
[2019-09-07] MEDS ORDERED: diphenhydrAMINE 50 MG/ML 1 ML VIAL IVP PRN ×3 (08:22→08:49)
[2019-09-07] MEDS ORDERED: NALOXONE 0.4 MG/ML 1 ML VIAL IV PRN ×2 (08:22→08:49)
[2019-09-07] MEDS ORDERED: MORPHINE SULFATE 2 MG/ML SYRINGE IVP PRN (08:22)
[2019-09-07] MEDS ORDERED: ONDANSETRON 4 MG/2 ML VIAL IVP PRN ×2 (08:22→08:49)
[2019-09-07] MEDS ORDERED: diphenhydrAMINE 25 MG CAP PO PRN (08:49)
[2019-09-07] MEDS ORDERED: diphenhydrAMINE 50 MG CAP PO PRN (08:49)
[2019-09-07] MEDS ORDERED: ZOLPIDEM 5 MG TAB PO PRN (08:49)
[2019-09-07] MEDS ORDERED: METOCLOPRAMIDE 5 MG/ML 2 ML VIAL IVP PRN (08:49)
--- NOTE | 2019-09-07 08:52 | P.HPOB ---
History of Present Illness H&P Date: 09/07/19 Chief Complaint: Intrauterine at term: Prior section Patient is a 24-year-old prior section who is 39 weeks gestation who arrives for repeat section. Her course generally speaking was unremarkable and she is feeling well at this time. She did feel her one-hour Glucola screen, however her 3 her Glucola screen was negative. She is scheduled for and has signed consent for repeat low transverse section. Risks/benefits/alternatives reviewed with patient in detail all questions were answered for her prior to proceeding to the operative room. These did include but were not limited to bleeding and infection, damage to bladder or bowel, damage to ureters and nerves, or vessels. Pertinent labs include A+ blood type, Rh and it was negative, rubella is immune, hepatitis B surface antigen was negative, GBS was negative as was HIV. Past Medical History Past Medical History: No Reported History Additional Past Medical History / Comment(s): CLUB FEET AT History of Any Multi-Drug Resistant Organisms: None Reported Past Surgical History: Section Past Anesthesia/Blood Transfusion Reactions: No Reported Reaction Additional Past Anesthesia/Blood Transfusion Reaction / Comment(s): no hx blood transfusion Past Psychological History: Anxiety, Depression Smoking Status: Current every day smoker Past Alcohol Use History: None Reported Additional Past Alcohol Use History / Comment(s): <1ppd Past Drug Use History: Marijuana Additional Drug Use History / Comment(s): no marijuana since "I don't remember last used ,maybe 1 mos ago" - Past Family History Mother Family Medical History: No Reported History Medications and Allergies Home Medications Medication Instructions Recorded Confirmed Type No Known Home Medications 09/02/19 09/02/19 History Allergies Allergy/AdvReac Type Severity Reaction Status Date / Time cat dander Allergy Swelling Verified 09/07/19 06:01 Exam Osteopathic Statement: *. No significant issues noted on an osteopathic structural exam other than those noted in the History and Physical/Consult. Vital Signs Temp Pulse Resp BP Pulse Ox 09/07/19 08:41 98.7 F 75 18 109/57 100 09/07/19 06:01 96.3 F L 101 H 16 115/69 99 Intake and Output 09/06/19 09/07/19 09/07/19 22:59 06:59 14:59 Intake Total 800 Output Total 200 Balance 600 Intake: IV 800 Output: Urine 200 Other: Voiding Method Indwelling Catheter Weight 100.698 kg - OBG Physical Exam Breast: both: normal (no masses) Abdomen: bowel sounds normal, no diffuse tenderness, no bruit present, no guarding noted, no hepatomegaly, no splenomegaly, no mass Vulva: both: normal Vagina: normal moisture, no discharge Cervix: no lesion, no discharge Uterus: normal size, normal contour Adnexa: both: normal Anus/Rectum: normal perianal skin, no rectal mass, no hemorrhoids, heme negative Results Result Diagrams: 09/07/19 06:03 Abnormal Lab Results - Last 24 Hours (Table) 09/07/19 Range/Units 06:03 Hgb 10.7 L (11.4-16.0) gm/dL RDW 15.6 H (11.5-15.5) %
--- NOTE | 2019-09-07 08:55 | P.OP ---
Date of Procedure: 09/07/19 Preoperative Diagnosis: Intrauterine term: Prior section Postoperative Diagnosis: Same Procedure(s) Performed: Repeat low transverse section Anesthesia: spinal Surgeon: Mark Wallis Foot Roentgenologist #1: Joslyn Barnhart Estimated Blood Loss (ml): 700 IV fluids (ml): 800 Urine output (ml): 200 Pathology: none sent Condition: stable Disposition: floor Operative Findings: Male scores of 9 and 9 at one and 5 minutes respectively and the weight was 7 lbs. 14 oz. Description of Procedure: Patient was taken to the operating suite where a spinal anesthetic was found be adequate. She was prepped and draped in the normal sterile fashion and placed in the dorsal supine position with leftward tilt. Initially a Pfannenstiel skin incision was made and this incision was then carried through to the underlying layer of fascia with the second knife. Fascia was then nicked in the midline and this opening was extended laterally with Medrano scissors. Superior and inferior aspect of this incision were then grasped tented up and bluntly and sharply dissected off the rectus muscles. Rectus muscles were then divided the midline and sharp dissection the peritoneum was done. This opening was then extended superiorly and inferiorly with good visualization of both bowel bladder. Bladder blade was then placed and bladder flap identified. It was en tered Metzenbaum scissors and carried across face the uterus but sponsors and bluntly dissected out of the operative field. Knife was then used to incise uterus. This opening was fully developed a hemostat and then extended bluntly. Head was then atraumatically delivered and mouth nares bulb suctioned. A was then easily delivered and the umbilical cord was clamped cut usual fashion an nursery personnel present to assume care. Placenta was then delivered intact Pitocin was added to the IV. Uterus was then exteriorized cleared of clots and debris and closed in 2 layers with 0 Vicryl suture. Once excellent hemostasis was obtained blood and debris was suctioned from the posterior cul-de-sac and the uterus was reinserted into the abdomen. Reevaluation verified hemostasis and the peritoneal layer was then reapproximated with 0 Vicryl suture. Fascial layer was then closed with 0 Vicryl. 3-0 Vicryl was used to reapproximate the skin and then the skin was closed with 3-0 Vicryl subcuticularly. Sponge, lap, needle counts were all correct 2. Patient was then taken to the recovery room in stable and satisfactory condition.
[2019-09-07] MEDS ORDERED: LACTATED RINGERS 1,000 ML IV SCH (09:00)
[2019-09-07] MEDS: KETOROLAC 30 MG/ML 1 ML VIAL IVP PRN (13:54)
[2019-09-07] MEDS: ACETAMINOPHEN TAB 325 MG TAB PO PRN (18:42)
[2019-09-07] MEDS: SIMETHICONE 80 MG CHEWABLE PO SCH (18:58)
[2019-09-07 20:22] VITALS: RESP 16
[2019-09-07] MEDS: SENNOSIDES-DOCUSATE SODIUM 1 EACH TAB PO SCH (20:23)
[2019-09-08] MEDS: KETOROLAC 30 MG/ML 1 ML VIAL IVP PRN ×2 (00:11→08:01)
[2019-09-08 05:54] LABS: Basophils % (A) 0 %; Eosinophils # (A) 0.2 k/uL (0-0.7); Eosinophils % (A) 2 %; HCT 26.6 % (34.0-46.0); Hypochromasia Slight; Lymphocytes # (A) 1.2 k/uL (1.0-4.8); Lymphocytes % (A) 15 %; MCH 26.2 pg (25.0-35.0); MCHC 31.4 g/dL (31.0-37.0); MCV 83.2 fL (80.0-100.0); Mean Platelet Volume 10.5; Monocytes # (A) 0.4 k/uL (0-1.0); Monocytes % (A) 4 %; Neutrophils # (A) 6.2 k/uL (1.3-7.7); Neutrophils % (A) 75 %; Platelet Count 114 k/uL (150-450); RBC 3.19 m/uL (3.80-5.40); RDW 15.7 % (11.5-15.5); WBC 8.2 k/uL (3.8-10.6)
[2019-09-08 06:08] LABS: HGB 8.3 gm/dL (11.4-16.0)
--- NOTE | 2019-09-08 06:37 | P.PN ---
Progress Note - Text Progress Note Date: 09/08/19 24 yo female status post . Post-op day #1. Patient received intrathecal Duramorph. Patient was seen today, sitting up in bed no complaints, pain VAS score 0/10, no headache, no itching, no nausea and vomiting. Assessment and plan: Doing well in general no complications from anesthesia.
[2019-09-08] MEDS: SENNOSIDES-DOCUSATE SODIUM 1 EACH TAB PO SCH ×2 (08:01→19:55)
[2019-09-08] MEDS: SIMETHICONE 80 MG CHEWABLE PO SCH ×3 (09:43→19:56)
--- NOTE | 2019-09-08 11:01 | P.PNOBGPC ---
Subjective - Subjective Principal diagnosis: Postop day 1 Interval history: Patient is doing very well postop day 1. She is involuting, voiding and tolerating her diet. She voices no complaints. All questions are answered for her at this time. Her incision is otherwise clean dry and intact. Hemoglobin is noted to be 8.3 but she is asymptomatic from this. Patient reports: Reports appetite normal, Reports voiding normally, Reports pain well controlled, Reports ambulating normally [place]: doing well Objective - Vital Signs Latest vital signs: Vital Signs Temp Pulse Resp BP Pulse Ox 09/08/19 08:00 98.2 F 73 16 106/56 98 09/08/19 06:00 16 100 09/08/19 04:00 98.1 F 65 16 98/57 99 09/08/19 02:00 16 100 09/08/19 00:00 98.1 F 62 16 103/62 100 09/07/19 22:00 16 100 09/07/19 20:00 98.4 F 64 16 99/61 100 09/07/19 17:24 18 99 09/07/19 16:00 98.3 F 63 18 94/55 99 09/07/19 14:00 98.3 F 76 18 96/61 97 Intake and Output 09/07/19 09/08/19 09/08/19 22:59 06:59 14:59 Output Total 600 Balance -600 Output: Urine 600 Other: # Voids 1 1 1 - Exam Lungs: bilateral: normal Chest: Normal S1, Normal S2 Extremities: Present: normal Abdomen: Present: normal appearance, soft. Absent: distention, tenderness Incision: Present: normal, dry, intact Uterus: Present: normal, firm - Labs Labs: Abnormal Lab Results - Last 24 Hours (Table) 09/08/19 Range/Units 05:28 RBC 3.19 L (3.80-5.40) m/uL Hgb 8.3 L D (11.4-16.0) gm/dL Hct 26.6 L (34.0-46.0) % RDW 15.7 H (11.5-15.5) % Plt Count 114 L (150-450) k/uL
[2019-09-08] MEDS: ACETAMINOPHEN TAB 325 MG TAB PO PRN ×2 (14:19→22:55)
[2019-09-08] MEDS: IBUPROFEN 600 MG TAB PO PRN (16:58)
[2019-09-08] MEDS: HYDROcodone/APAP 7.5-325MG 1 EACH TAB PO PRN (19:55)
[2019-09-09] MEDS: SIMETHICONE 80 MG CHEWABLE PO SCH (01:21)
[2019-09-09] MEDS: IBUPROFEN 600 MG TAB PO PRN (03:18)
[2019-09-09] MEDS: HYDROcodone/APAP 7.5-325MG 1 EACH TAB PO PRN (07:52)
[2019-09-09] MEDS: SENNOSIDES-DOCUSATE SODIUM 1 EACH TAB PO SCH (07:52)
[2019-09-09 08:17] VITALS: BP 101/65; PULSE 86; TEMP 98.5
--- NOTE | 2019-09-09 08:38 | P.DS ---
Providers Date of admission: 09/07/19 05:48 Expected date of discharge: 09/09/19 Attending physician: Mark Wallis Primary care physician: Stated None Hospital Course: Patient is doing very well postop day 2. She is involuting, voiding and tolerating her diet. She voices no complaints. Vital signs are stable and she is afebrile. Heart regular, lungs clear, extremities without pain. Abdomen soft uterus is firm and lochia is reported light. Her incision is otherwise clean dry and intact. Assessment postop day 2. Plan discharged home follow up with me in 1-2 weeks all of the discharge instructions were thoroughly reviewed and she is stable for discharge at this time. Patient Condition at Discharge: Good Plan - Discharge Summary Discharge Rx Participant: Yes New Discharge Prescriptions: New Ibuprofen [Motrin] 600 mg PO Q6HR PRN #30 tab PRN Reason: Pain HYDROcodone/APAP 5-325MG [[place] 5-325] 1 tab PO Q4HR PRN #30 tab PRN Reason: Pain Discharge Medication List HYDROcodone/APAP 5-325MG [[place] 5-325] 1 tab PO Q4HR PRN #30 tab 09/09/19 [Rx] Ibuprofen [Motrin] 600 mg PO Q6HR PRN #30 tab 09/09/19 [Rx] Follow up Appointment(s)/Referral(s): Mark Wallis DO [Doctor of Osteopathic Medicine] - 2 Weeks Activity/Diet/Wound Care/Special Instructions: No heavy lifting, limit stairs and driving, and pelvic rest. If any high temperatures, heavy bleeding, or severe pain call my office Discharge Disposition: HOME SELF-CARE
[2019-09-09] MEDS: ACETAMINOPHEN TAB 325 MG TAB PO PRN (13:36)
== END 2019-09-09 14:35 | disposition home or self-care (01) | DRG 788 ==
LOC: 4FBP 05:48
PROVIDERS: ADMIT Obstetrics & Gynecology; ATTEND Obstetrics & Gynecology
PROC: 10D00Z1 Extraction of Products of Conception, Low, Open Approach (ICD-10-PCS; principal; 2019-09-07 08:00)
DX: O34.211 Maternal care for low transverse scar from previous cesarean delivery (principal); O99.334 Smoking (tobacco) complicating childbirth; F17.210 Nicotine dependence, cigarettes, uncomplicated; Z37.0 Single live birth; Z91.048 Other nonmedicinal substance allergy status
CPT/HCPCS: 85025; 86850; 86900; 86901

== ENCOUNTER → 2020-01-17 | Outpatient (CLI) | payer OTHER ==
--- NOTE | 2020-01-18 07:55 | US ---
EXAMINATION TYPE: US pelvic complete DATE OF EXAM: 01/17/2020 COMPARISON: NONE CLINICAL HISTORY: Z97.5 IUD PLACEMENT. TECHNIQUE: Transabdominal (TA). Date of LMP: 12-21-19 EXAM MEASUREMENTS: Uterus: 10.6 x 4.5 x 6.7 cm Endometrial Stripe: 0.4 cm Right Ovary: 2.1 x 1.8 x 2.0 cm Left Ovary: 1.9 x 1.4 x 1.6 cm 1. Uterus: Anteverted wnl 2. Endometrium: IUD appears in place, fundal 3. Right Ovary: wnl 4. Left Ovary: wnl 5. Bilateral Adnexa: wnl 6. Posterior cul-de-sac: wnl IUD appears in place, otherwise unremarkable study. IMPRESSION: 1. IUD appears within the endometrium of the uterine fundus and body.
== END | disposition home or self-care (01) ==
LOC: RADUSWWP 16:07
PROVIDERS: ATTEND Obstetrics & Gynecology
DX: Z97.5 Presence of (intrauterine) contraceptive device (principal)
CPT/HCPCS: 76856

== ENCOUNTER 2020-10-25 12:33 | Emergency (ER) | payer OTHER ==
[2020-10-25 13:00] VITALS: BP 105/73; PULSE 79; RESP 18; TEMP 98.1
--- NOTE | 2020-10-25 13:49 | XR ---
EXAMINATION TYPE: XR ankle complete RT DATE OF EXAM: 10/25/2020 CLINICAL HISTORY: Pain for 3 weeks. No known injury TECHNIQUE: Frontal, lateral and oblique images of the right ankle are obtained. COMPARISON: None. FINDINGS: There is no acute fracture/dislocation evident in the right ankle. The ankle mortise appe ars within normal limits. The overlying soft tissue appears unremarkable. IMPRESSION: There is no acute fracture or dislocation in the right ankle.
--- NOTE | 2020-10-25 14:01 | ED ---
General Adult HPI - General Chief complaint: Extremity Injury, Lower Stated complaint: ankle & foot injury Time Seen by Provider: 10/25/20 13:00 Source: patient, RN notes reviewed, old records reviewed Mode of arrival: wheelchair Limitations: no limitations - History of Present Illness Initial comments: This is a 25-year-old female presents to the emergency department complaining of 3 week history of foot pain. Patient states walking seems to cause more pain in the bottom of her foot. Patient denies any ankle pain to me. Patient denies any leg pain. Patient denies any injury. Patient states walking definitely makes it worse worse pulling her toes back makes it worse. Patient denies any areas of swelling or redness. - Related Data Previous Rx's Medication Instructions Recorded HYDROcodone/APAP 5-325MG [[place] 1 tab PO Q4HR PRN #30 tab 09/09/19 5-325] Ibuprofen [Motrin] 600 mg PO Q6HR PRN #30 tab 09/09/19 Ibuprofen [Motrin] 600 mg PO Q6HR PRN #20 tab 10/25/20 Allergies Allergy/AdvReac Type Severity Reaction Status Date / Time cat dander Allergy Swelling Verified 09/07/19 06:01 Review of Systems ROS Statement: Those systems with pertinent positive or pertinent negative responses have been documented in the HPI. ROS Other: All systems not noted in ROS Statement are negative. Past Medical History Past Medical History: No Reported History Additional Past Medical History / Comment(s): CLUB FEET AT , [employer] covid vaccine 09/15/20. History of Any Multi-Drug Resistant Organisms: None Reported Past Surgical History: Section Past Anesthesia/Blood Transfusion Reactions: No Reported Reaction Additional Past Anesthesia/Blood Transfusion Reaction / Comment(s): no hx blood transfusion Past Psychological History: Anxiety, Depression Smoking Status: Vaper Past Alcohol Use History: None Reported Past Drug Use History: Marijuana - Past Family History Mother Family Medical History: No Reported History General Exam - General Exam Comments Initial Comments: GENERAL Patient is well-developed and well-nourished. Patient is in mild distress. EYES Patient's pupils are equal and round. Extraocular motion is intact SKIN Unremarkable NEURO The patient is alert and oriented 3 PYSCH Patient has normal interpersonal interactions. MUSCULOSKELETAL Patient has tenderness at the heel at the point where the plantar fasciitis attaches. Patient has significant plantar pain with dorsiflexion. Limitations: no limitations Course Vital Signs 10/25/20 12:57 Temperature 98.1 F Pulse Rate 79 Respiratory 18 Rate Blood Pressure 105/73 O2 Sat by Pulse 100 Oximetry Disposition Clinical Impression: Plantar fasciitis Disposition: HOME SELF-CARE Condition: Good Instructions (If sedation given, give patient instructions): Plantar Fasciitis (ED), Plantar Fasciitis Exercises (ED) Prescriptions: Ibuprofen [Motrin] 600 mg PO Q6HR PRN #20 tab PRN Reason: For pain Is patient prescribed a controlled substance at d/c from ED?: No Referrals: Gregory Miller DO [Primary Care Provider] - 1-2 days Time of Disposition: 14:01
== END 2020-10-25 14:30 | disposition home or self-care (01) ==
LOC: EC 12:33
DX: M72.2 Plantar fascial fibromatosis (principal); F41.9 Anxiety disorder, unspecified; F32.9 Major depressive disorder, single episode, unspecified; F17.290 Nicotine dependence, other tobacco product, uncomplicated; F12.90 Cannabis use, unspecified, uncomplicated
CPT/HCPCS: 99283

== ENCOUNTER 2020-12-03 15:01 | Emergency (ER) | payer OTHER ==
[2020-12-03 15:39] VITALS: TEMP 98
[2020-12-03] MEDS ORDERED: ACETAMINOPHEN TAB 500 MG TAB PO STA (15:45)
--- NOTE | 2020-12-03 16:33 | XR ---
EXAMINATION TYPE: XR finger LT DATE OF EXAM: 12/03/2020 COMPARISON: NONE HISTORY: Pain TECHNIQUE: 3 views FINDINGS: I see no fracture nor dislocation. Joint spaces are normal. There are no pathologic calcifi cations. IMPRESSION: Negative left thumb exam.
--- NOTE | 2020-12-03 16:49 | ED ---
Upper Extremity HPI - General Chief Complaint: Extremity Injury, Upper Stated Complaint: R hand injury Time Seen by Provider: 12/03/20 15:40 Source: patient, RN notes reviewed Mode of arrival: ambulatory Limitations: no limitations - History of Present Illness Initial Comments: Patient is a 25-year-old female that presents to emergency room complaining of left thumb pain. She notes that she [facility] [place] [facility] she currently attends taken slipped and landed on her thumb in her to pop. She notes that this happened around 8 PM last night. She denied any numbness or pain over her anatomical snuffbox. She did note that she does have range of motion is just painful. She noted her pain was approximately a 4 out of 10 with no relief from at home remedies. She noted that she really wanted Tylenol for the pain at this time. She did not appear to be in any distress or pain while sitting in bed during the exam and interview. She denied any chest pain short of breath headache nausea vomiting diarrhea constipation fever fatigue chills. - Related Data Previous Rx's Medication Instructions Recorded HYDROcodone/APAP 5-325MG [[place] 1 tab PO Q4HR PRN #30 tab 09/09/19 5-325] Ibuprofen [Motrin] 600 mg PO Q6HR PRN #30 tab 09/09/19 Ibuprofen [Motrin] 600 mg PO Q6HR PRN #20 tab 10/25/20 Allergies Allergy/AdvReac Type Severity Reaction Status Date / Time cat dander Allergy Swelling Verified 12/03/20 15:32 Review of Systems ROS Statement: Those systems with pertinent positive or pertinent negative responses have been documented in the HPI. ROS Other: All systems not noted in ROS Statement are negative. Past Medical History Past Medical History: No Reported History Additional Past Medical History / Comment(s): CLUB FEET AT , [employer] covid vaccine 09/15/20. History of Any Multi-Drug Resistant Organisms: None Reported Past Surgical History: Section Past Anesthesia/Blood Transfusion Reactions: No Reported Reaction Additional Past Anesthesia/Blood Transfusion Reaction / Comment(s): no hx blood transfusion Past Psychological History: Anxiety, Depression Smoking Status: Current every day smoker, Vaper Past Alcohol Use History: None Reported Past Drug Use History: Marijuana - Past Family History Mother Family Medical History: No Reported History General Exam Limitations: no limitations General appearance: alert, in no apparent distress Head exam: Present: atraumatic, normocephalic, normal inspection Eye exam: Present: normal appearance, PERRL, EOMI. Absent: scleral icterus, conjunctival injection, periorbital swelling Neck exam: Present: normal inspection Respiratory exam: Present: normal lung sounds bilaterally. Absent: respiratory distress, wheezes, rales, rhonchi, stridor Cardiovascular Exam: Present: regular rate, normal rhythm, normal heart sounds. Absent: systolic murmur, diastolic murmur, rubs, gallop, clicks Left Hand Wrist exam: Present: normal inspection, tenderness (Over the metacarpophalangeal joint of the left thumb), other (No pain over the anatomical snuffbox.). Absent: full ROM (Conservative pain), swelling, abrasion, laceration, ecchymosis, deformity, crepitus, dislocation, erythema Neurological exam: Present: alert, oriented X3 Psychiatric exam: Present: normal affect, normal mood Skin exam: Present: warm, dry, intact, normal color. Absent: rash Course Vital Signs 12/03/20 15:34 Temperature 98.0 F Pulse Rate 83 Respiratory 16 Rate Blood Pressure 114/83 O2 Sat by Pulse 100 Oximetry Medical Decision Making - Medical Decision Making 25 to female complaining of left thumb pain after injuring it last night around 8 PM. X-ray of the left thumb, 1000 mg of Tylenol ordered. X-ray negative for any acute fractures or dislocations. Most likely a soft tissue injury can follow up with orthopedist as needed. Case discussed with Dr. Wiggins, patient can discharge home with follow-up primary care and orthopedist. Patient will discharge in stable condition. - Radiology Data Radiology results: report reviewed, image reviewed X-ray of the left thumb: Negative left thumb exam. Disposition Clinical Impression: Left thumb sprain Disposition: HOME SELF-CARE Condition: Stable Instructions (If sedation given, give patient instructions): Hand Sprain (ED) Additional Instructions: Please return to the Emergency Department if symptoms worsen or any other concerns. Follow-up with primary care in next several days and orthopedist as needed. Take, Motrin as needed for pain control. Rest ice compress elevate. Wear thumb spica splint/brace throughout the day to alleviate pain symptoms. Is patient prescribed a controlled substance at d/c from ED?: No Referrals: Gregory Miller DO [Primary Care Provider] - 1-2 days Time of Disposition: 17:01
[2020-12-03 17:17] VITALS: BP 132/79; PULSE 76; RESP 18
== END 2020-12-03 17:16 | disposition home or self-care (01) ==
LOC: EC 15:01
DX: S63.602A Unspecified sprain of left thumb, initial encounter (principal); F17.290 Nicotine dependence, other tobacco product, uncomplicated; W01.0XXA Fall on same level from slipping, tripping and stumbling without subsequent striking against object, initial encounter; Z91.048 Other nonmedicinal substance allergy status; Y92.838 Other recreation area as the place of occurrence of the external cause
CPT/HCPCS: 99283

== ENCOUNTER 2021-02-16 23:47 | Emergency (ER) | payer OTHER ==
[2021-02-17 00:03] VITALS: TEMP 98.3
[2021-02-17] MEDS ORDERED: KETOROLAC 15 MG/ML 1 ML VIAL IVP STA (00:32)
[2021-02-17] MEDS ORDERED: SODIUM CHLORIDE 0.9% 1,000 ML IV ONE (00:32)
[2021-02-17] MEDS ORDERED: ONDANSETRON 4 MG/2 ML VIAL IVP STA (00:32)
[2021-02-17 00:54] LABS: Appearance,Urine Cloudy (Clear); Bacteria,Urine Rare /hpf; Bilirubin,Urine Negative (Negative); Blood,Urine Small (Negative); Color,Urine Yellow; Glucose,Urine (UA) Negative (Negative); Hyaline Casts,Urine 3 /lpf (0-2); Ketones,Urine 1+ (Negative); Leukocyte Esterase,Urine Small (Negative); Mucus,Urine Occasional /hpf; Nitrite,Urine Negative (Negative); PH, Urine 5.5 (5.0-8.0); Protein,Urine Negative (Negative); RBC,Urine 10 /hpf (0-5); Specific Gravity,Urine 1.024 (1.001-1.035); Squamous Epithelial Cell,Urine 6 /hpf (0-4); Urobilinogen,Urine <2.0 mg/dL (<2.0); WBC,Urine 9 /hpf (0-5)
--- NOTE | 2021-02-17 01:32 | ED ---
Abdominal Pain HPI - General Chief Complaint: Abdominal Pain Stated Complaint: Back Pain, vomiting Time Seen by Provider: 02/17/21 00:04 Source: patient Mode of arrival: ambulatory Limitations: no limitations - History of Present Illness Initial Comments: 25 year-old female patient presents to the emergency department for evaluation of low back pain and vomiting. States she feels like she has to urinate but only goes a small amount frequently. Denies any fever or chills. She did have an episode of vomiting today. Denies pain radiation down her aches. Denies numbness or tingling to the lower extremity. Denies any saddle anesthesia or loss of bowel or bladder control. Denies abdominal pain. Denies any chance of . Denies abnormal vaginal bleeding or discharge. Patient denies any recent rash, cough, shortness of breath, chest pain, back pain, numbness, tingling, dizziness, weakness, headache, visual changes, or any other complaint s. - Related Data Previous Rx's Medication Instructions Recorded HYDROcodone/APAP 5-325MG [[place] 1 tab PO Q4HR PRN #30 tab 09/09/19 5-325] Ibuprofen [Motrin] 600 mg PO Q6HR PRN #30 tab 09/09/19 Ibuprofen [Motrin] 600 mg PO Q6HR PRN #20 tab 10/25/20 Acetaminophen-Codeine 300-30mg 1 tab PO Q6H PRN #12 tablet 02/17/21 [Tylenol #3] Ibuprofen [Motrin] 600 mg PO Q8HR PRN #30 tab 02/17/21 Allergies Allergy/AdvReac Type Severity Reaction Status Date / Time cat dander Allergy Swelling Verified 02/17/21 00:03 Review of Systems ROS Statement: Those systems with pertinent positive or pertinent negative responses have been documented in the HPI. ROS Other: All systems not noted in ROS Statement are negative. 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 History of Any Multi-Drug Resistant Organisms: None Reported Past Surgical History: Section Past Anesthesia/Blood Transfusion Reactions: No Reported Reaction Additional Past Anesthesia/Blood Transfusion Reaction / Comment(s): no hx blood transfusion Past Psychological History: Anxiety, Depression Smoking Status: Current every day smoker, Vaper Past Alcohol Use History: None Reported Past Drug Use History: Marijuana - Past Family History Mother Family Medical History: No Reported History General Exam Limitations: no limitations General appearance: alert, in no apparent distress, other (This is a well- developed, well-nourished adult female patient in no acute distress. Vital signs upon presentation temperature 98.2F, pulse 86, respirations 20, blood pressure 121/83, pulse ox 100% on room air.) ENT exam: Present: normal exam, normal oropharynx, mucous membranes moist Respiratory exam: Present: normal lung sounds bilaterally. Absent: respiratory distress, wheezes, rales, rhonchi, stridor Cardiovascular Exam: Present: regular rate, normal rhythm, normal heart sounds. Absent: systolic murmur, diastolic murmur, rubs, gallop, clicks GI/Abdominal exam: Present: soft, normal bowel sounds. Absent: distended, tenderness, guarding, rebound, rigid Back exam: Present: CVA tenderness (R). Absent: CVA tenderness (L) Neurological exam: Present: alert, oriented X3, CN II-XII intact Psychiatric exam: Present: normal affect, normal mood Skin exam: Present: warm, dry, intact, normal color. Absent: rash Course Vital Signs 02/16/21 23:52 Temperature 98.3 F Pulse Rate 86 Respiratory 20 Rate Blood Pressure 121/83 O2 Sat by Pulse 100 Oximetry Medical Decision Making - Medical Decision Making 25-year-old female patient presents to the emergency department today for evaluation of back pain and vomiting. Physical examination revealed a right-jd ed CVA tenderness. Abdomen soft and nontender. Labs reviewed and did reveal white blood cell count at 13.4 with a left shift with neutrophils at 11.7. Urinalysis showed small amount of blood with 10 red blood cells, 9 white blood cells, 6 squamous epithelial cells. She is not . COVID-[address] abdomen and pelvis without contrast was obtained and did show evidence for right-sided kidney stone measuring 3 mm. She'll be started on Flomax. Given pain medication. To be discharged to follow up with her primary care physician and urology for further evaluation. Return parameters were discussed in detail. She verbalizes understanding and agrees with this plan. My attending is Dr. Diggs. - Lab Data Result diagrams: 02/17/21 01:00 02/17/21 01:00 Lab Results 02/16/21 02/16/21 02/17/21 Range/Units 23:58 23:58 01:00 WBC 13.4 H (3.8-10.6) k/uL RBC 4.61 (3.80-5.40) m/uL Hgb 12.3 (11.4-16.0) gm/dL Hct 37.6 (34.0-46.0) % MCV 81.6 (80.0-100.0) fL MCH 26.6 (25.0-35.0) pg MCHC 32.6 (31.0-37.0) g/dL RDW 15.4 (11.5-15.5) % Plt Count 229 (150-450) k/uL MPV 8.6 Neutrophils % 87 % Lymphocytes % 7 % Monocytes % 4 % Eosinophils % 1 % Basophils % 0 % Neutrophils # 11.7 H (1.3-7.7) k/uL Lymphocytes # 0.9 L (1.0-4.8) k/uL Monocytes # 0.5 (0-1.0) k/uL Eosinophils # 0.1 (0-0.7) k/uL Basophils # 0.0 (0-0.2) k/uL Hypochromasia Slight Sodium (137-145) mmol/L Potassium (3.5-5.1) mmol/L Chloride (98-107) mmol/L Carbon Dioxide (22-30) mmol/L Anion Gap mmol/L BUN (7-17) mg/dL Creatinine (0.52-1.04) mg/dL Est GFR (CKD-EPI)AfAm (>60 ml/min/1.73 sqM) Est GFR (CKD-EPI)NonAf (>60 ml/min/1.73 sqM) Glucose (74-99) mg/dL Calcium (8.4-10.2) mg/dL Total Bilirubin (0.2-1.3) mg/dL AST (14-36) U/L ALT (4-34) U/L Alkaline Phosphatase (38-126) U/L Total Protein (6.3-8.2) g/dL Albumin (3.5-5.0) g/dL Lipase (23-300) U/L Urine Color Yellow Urine Appearance Cloudy H (Clear) Urine pH 5.5 (5.0-8.0) Ur Specific Mongo 1.024 (1.001-1.035) Urine Protein Negative (Negative) Urine Glucose (UA) Negative (Negative) Urine Ketones 1+ H (Negative) Urine Blood Small H (Negative) Urine Nitrite Negative (Negative) Urine Bilirubin Negative (Negative) Urine Urobilinogen <2.0 (<2.0) mg/dL Ur Leukocyte Esterase Small H (Negative) Urine RBC 10 H (0-5) /hpf Urine WBC 9 H (0-5) /hpf Ur Squamous Epith Cells 6 H (0-4) /hpf Urine Bacteria Rare H (None) /hpf Hyaline Casts 3 H (0-2) /lpf Urine Mucus Occasional H (None) /hpf Urine HCG, Qual Not Detected (Not Detectd) Coronavirus (PCR) (Not Detectd) 02/17/21 02/17/21 Range/Units 01:00 01:32 WBC (3.8-10.6) k/uL RBC (3.80-5.40) m/uL Hgb (11.4-16.0) gm/dL Hct (34.0-46.0) % MCV (80.0-100.0) fL MCH (25.0-35.0) pg MCHC (31.0-37.0) g/dL RDW (11.5-15.5) % Plt Count (150-450) k/uL MPV Neutrophils % % Lymphocytes % % Monocytes % % Eosinophils % % Basophils % % Neutrophils # (1.3-7.7) k/uL Lymphocytes # (1.0-4.8) k/uL Monocytes # (0-1.0) k/uL Eosinophils # (0-0.7) k/uL Basophils # (0-0.2) k/uL Hypochromasia Sodium 137 (137-145) mmol/L Potassium 4.0 (3.5-5.1) mmol/L Chloride 105 (98-107) mmol/L Carbon Dioxide 21 L (22-30) mmol/L Anion Gap 11 mmol/L BUN 13 (7-17) mg/dL Creatinine 0.68 (0.52-1.04) mg/dL Est GFR (CKD-EPI)AfAm >90 (>60 ml/min/1.73 sqM) Est GFR (CKD-EPI)NonAf >90 (>60 ml/min/1.73 sqM) Glucose 127 H (74-99) mg/dL Calcium 9.7 (8.4-10.2) mg/dL Total Bilirubin 0.4 (0.2-1.3) mg/dL AST 22 (14-36) U/L ALT 12 (4-34) U/L Alkaline Phosphatase 102 (38-126) U/L Total Protein 7.6 (6.3-8.2) g/dL Albumin 4.4 (3.5-5.0) g/dL Lipase 32 (23-300) U/L Urine Color Urine Appearance (Clear) Urine pH (5.0-8.0) Ur Specific Mongo (1.001-1.035) Urine Protein (Negative) Urine Glucose (UA) (Negative) Urine Ketones (Negative) Urine Blood (Negative) Urine Nitrite (Negative) Urine Bilirubin (Negative) Urine Urobilinogen (<2.0) mg/dL Ur Leukocyte Esterase (Negative) Urine RBC (0-5) /hpf Urine WBC (0-5) /hpf Ur Squamous Epith Cells (0-4) /hpf Urine Bacteria (None) /hpf Hyaline Casts (0-2) /lpf Urine Mucus (None) /hpf Urine HCG, Qual (Not Detectd) Coronavirus (PCR) Not Detected (Not Detectd) - Radiology Data Radiology results: report reviewed, image reviewed CT abdomen and pelvis without contrast was obtained. Report was reviewed in its entirety. Impression by Dr. Mac shows obstructing small calculus at the right ureterovesicular junction with right-sided hydronephrosis and hydroureter. No other calculus seen. Normal appendix. Disposition Clinical Impression: Kidney stone on right side Disposition: HOME SELF-CARE Condition: Good Instructions (If sedation given, give patient instructions): Kidney Stones (ED) Additional Instructions: Increase fluids. Rest. Take medications as directed. Follow up with urology for further evaluation as soon as possible. Return to the emergency department for any new, worsening, or concerning symptoms. Prescriptions: Ibuprofen [Motrin] 600 mg PO Q8HR PRN #30 tab PRN Reason: Pain Acetaminophen-Codeine 300-30mg [Tylenol #3] 1 tab PO Q6H PRN #12 tablet PRN Reason: Pain Is patient prescribed a controlled substance at d/c from ED?: No Referrals: Gregory Miller DO [Primary Care Provider] - 1-2 days Jose Luis Stephenson MD [STAFF PHYSICIAN] - 1-2 days Time of Disposition: 02:51
[2021-02-17 01:45] LABS: Basophils % (A) 0 %; Eosinophils # (A) 0.1 k/uL (0-0.7); Eosinophils % (A) 1 %; HCT 37.6 % (34.0-46.0); HGB 12.3 gm/dL (11.4-16.0); Hypochromasia Slight; Lymphocytes # (A) 0.9 k/uL (1.0-4.8); Lymphocytes % (A) 7 %; MCH 26.6 pg (25.0-35.0); MCHC 32.6 g/dL (31.0-37.0); MCV 81.6 fL (80.0-100.0); Mean Platelet Volume 8.6; Monocytes # (A) 0.5 k/uL (0-1.0); Monocytes % (A) 4 %; Neutrophils # (A) 11.7 k/uL (1.3-7.7); Neutrophils % (A) 87 %; Platelet Count 229 k/uL (150-450); RBC 4.61 m/uL (3.80-5.40); RDW 15.4 % (11.5-15.5); WBC 13.4 k/uL (3.8-10.6)
[2021-02-17 02:01] LABS: ALT 12 U/L (4-34); AST 22 U/L (14-36); African American GFR (CKD) >90 (>60 ml/min/1.73 sqM); Albumin 4.4 g/dL (3.5-5.0); Alkaline Phosphatase 102 U/L (38-126); Anion Gap 11 mmol/L; Blood Urea Nitrogen 13 mg/dL (7-17); Calcium 9.7 mg/dL (8.4-10.2); Carbon Dioxide 21 mmol/L (22-30); Chloride 105 mmol/L (98-107); Glucose 127 mg/dL (74-99); Lipase 32 U/L (23-300); Non-African American GFR(CKD) >90 (>60 ml/min/1.73 sqM); Sodium 137 mmol/L (137-145); Total Bilirubin 0.4 mg/dL (0.2-1.3); Total Protein 7.6 g/dL (6.3-8.2)
--- NOTE | 2021-02-17 02:18 | CT ---
EXAMINATION TYPE: CT abdomen pelvis wo con DATE OF EXAM: 02/17/2021 COMPARISON: None HISTORY: Rt flank pain CT DLP: 1085.40 mGycm Automated exposure control for dose reduction was used. Images obtained from the diaphragm to the floor the pelvis without contrast. Lung bases are clear. There is no pleural effusion. Heart size is normal. There is no pericardial eff usion. Liver spleen stomach appear intact. Bile ducts are not dilated. There is no pancreatic mass. Gallblad nick appears normal. There is no adrenal mass. Kidneys have normal size. There is right-sided hydronephrosis and hydrouret er. There is no retroperitoneal adenopathy. There is evidence of 3 mm calculus at the right ureterove sical junction. Bladder is almost empty. Uterus is anteverted. There is IUD in good position in the u terine fundus. There is no inguinal hernia. There is no free fluid in the pelvis. Appendix appears no rmal. There is no mesenteric edema. There is no ascites or free air. There is no bowel obstruction. Lumbar vertebra have normal spacing and alignment. Posterior elements are intact. There is no ramila toni fracture. Bony pelvis is intact. Hip joints appear normal. IMPRESSION: Obstructing small calculus at the right ureterovesical junction with right-sided hydronephrosis and h ydroureter. No other calculus seen. Normal appendix.
[2021-02-17] MEDS ORDERED: TAMSULOSIN 0.4 MG CAP.ER.24H PO STA (02:48)
[2021-02-17] MEDS ORDERED: ACET/COD 300 MG/30 MG STARTER PACK 6 TAB BTL PO STA (02:48)
[2021-02-17] MEDS ORDERED: HYDROmorphone 0.5 MG/0.5 ML SYRINGE IVP STA (03:04)
[2021-02-17 03:36] VITALS: BP 102/67; PULSE 69; RESP 18
== END 2021-02-17 03:51 | disposition home or self-care (01) ==
LOC: EC 23:47
DX: N13.2 Hydronephrosis with renal and ureteral calculous obstruction (principal); J45.909 Unspecified asthma, uncomplicated; F17.290 Nicotine dependence, other tobacco product, uncomplicated; Z20.822 Contact with and (suspected) exposure to COVID-19; Z91.09 Other allergy status, other than to drugs and biological substances
CPT/HCPCS: 36415; 80053; 83690; 85025; 81001; 81025; 87635; 74176; 99284; 96374; 96375; 96361; J2405; J1885; J1170

== ENCOUNTER 2022-07-06 15:05 | Emergency (ER) | payer OTHER ==
[2022-07-06 15:33] VITALS: RESP 16; TEMP 97.7
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
[2022-07-06 18:00] VITALS: PULSE 68
[2022-07-06 18:01] VITALS: BP 110/80
== END 2022-07-06 18:01 | disposition home or self-care (01) ==
LOC: EC 15:05
DX: S80.01XA Contusion of right knee, initial encounter (principal); S60.221A Contusion of right hand, initial encounter; J45.909 Unspecified asthma, uncomplicated; F41.9 Anxiety disorder, unspecified; F32.A Depression, unspecified; F17.290 Nicotine dependence, other tobacco product, uncomplicated; F12.90 Cannabis use, unspecified, uncomplicated; Z88.8 Allergy status to other drugs, medicaments and biological substances; V89.2XXA Person injured in unspecified motor-vehicle accident, traffic, initial encounter; Y92.411 Interstate highway as the place of occurrence of the external cause
CPT/HCPCS: 70450; 71046; 99284

== ENCOUNTER 2023-12-24 13:30 | Emergency (ER) | payer OTHER ==
[2023-12-24 13:35] VITALS: BP 127/87; PULSE 81; RESP 20; TEMP 98
[2023-12-24 14:01] LABS: Appearance,Urine Cloudy (Clear); Bilirubin,Urine Negative (Negative); Blood,Urine Moderate (Negative); Color,Urine Yellow; Glucose,Urine (UA) Negative (Negative); Hyaline Casts,Urine 1 /lpf (0-2); Ketones,Urine Negative (Negative); Leukocyte Esterase,Urine Trace (Negative); Mucus,Urine Many /hpf; Nitrite,Urine Negative (Negative); PH, Urine 6.5 (5.0-8.0); Protein,Urine Negative (Negative); RBC,Urine 51 /hpf (0-5); Specific Gravity,Urine 1.022 (1.001-1.035); Squamous Epithelial Cell,Urine 8 /hpf (0-4); Urobilinogen,Urine <2.0 mg/dL (<2.0); WBC,Urine 1 /hpf (0-5)
[2023-12-24] MEDS ORDERED: KETOROLAC 15 MG/ML 1 ML VIAL IVP STA (15:54)
[2023-12-24] MEDS ORDERED: PANTOPRAZOLE 40 MG/10 ML VIAL IVP STA (15:54)
[2023-12-24] MEDS ORDERED: ONDANSETRON 4 MG/2 ML VIAL IVP STA (15:54)
[2023-12-24] MEDS ORDERED: SODIUM CHLORIDE 0.9% 1,000 ML IV STA (15:54)
--- NOTE | 2023-12-24 16:13 | ED ---
Back Pain HPI - General Chief Complaint: Back Pain/Injury Stated Complaint: kidney stone Source: patient, RN notes reviewed, old records reviewed Mode of arrival: ambulatory Limitations: no limitations - History of Present Illness Initial Comments: QN 28 female to ER for evaluation of back pain, patient believes she may have kidney stones - Related Data Home Medications Medication Instructions Recorded Confirmed No Known Home Medications 07/06/22 07/06/22 Allergies Allergy/AdvReac Type Severity Reaction Status Date / Time cat dander Allergy Swelling Verified 12/24/23 13:35 Review of Systems ROS Statement: Those systems with pertinent positive or pertinent negative responses have been documented in the HPI. ROS Other: All systems not noted in ROS Statement are negative. 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 History of Any Multi-Drug Resistant Organisms: None Reported Past Surgical History: Section Past Anesthesia/Blood Transfusion Reactions: No Reported Reaction Additional Past Anesthesia/Blood Transfusion Reaction / Comment(s): no hx blood transfusion Past Psychological History: Anxiety, Depression Smoking Status: Current every day smoker, Vaper Past Alcohol Use History: Occasional Past Drug Use History: Marijuana - Past Family History Mother Family Medical History: No Reported History General Exam Limitations: no limitations General appearance: alert Head exam: Present: atraumatic Eye exam: Present: normal appearance Rectal exam: Present: deferred Extremities exam: Present: normal inspection Neurological exam: Present: alert Course Vital Signs 12/24/23 13:33 Temperature 98 F Pulse Rate 81 Respiratory 20 Rate Blood Pressure 127/87 O2 Sat by Pulse 99 Oximetry - Reevaluation(s) Reevaluation #1: 12/24/23 15:12 QN completed by myself Dr. Ray Medical Decision Making - Lab Data Lab Results 12/24/23 Range/Units 13:41 Urine Color Yellow Urine Appearance Cloudy H (Clear) Urine pH 6.5 (5.0-8.0) Ur Specific [place] 1.022 (1.001-1.035) Urine Protein Negative (Negative) Urine Glucose (UA) Negative (Negative) Urine Ketones Negative (Negative) Urine Blood Moderate H (Negative) Urine Nitrite Negative (Negative) Urine Bilirubin Negative (Negative) Urine Urobilinogen <2.0 (<2.0) mg/dL Ur Leukocyte Esterase Trace H (Negative) Urine RBC 51 H (0-5) /hpf Urine WBC 1 (0-5) /hpf Ur Squamous Epith Cells 8 H (0-4) /hpf Hyaline Casts 1 (0-2) /lpf Urine Mucus Many H (None) /hpf Disposition Clinical Impression: Left against medical advice Disposition: LEFT AGAINST MEDICAL ADVICE Condition: Undetermined Is patient prescribed a controlled substance at d/c from ED?: No Referrals: None,Stated [Primary Care Provider] - 1-2 days
== END 2023-12-24 16:10 | disposition left against medical advice (07) ==
LOC: EC 13:30
DX: N20.0 Calculus of kidney (principal); F17.290 Nicotine dependence, other tobacco product, uncomplicated; Z91.048 Other nonmedicinal substance allergy status; Z53.29 Procedure and treatment not carried out because of patient's decision for other reasons
CPT/HCPCS: 81001; 99283

== ENCOUNTER 2024-12-08 19:22 | Emergency (ER) | payer OTHER ==
--- NOTE | 2024-12-08 20:40 | ED ---
ENT HPI - General Chief complaint: ENT Stated complaint: LAITH Time Seen by Provider: 12/08/24 20:37 Source: patient, RN notes reviewed Mode of arrival: ambulatory Limitations: no limitations - History of Present Illness Initial comments: 29-year-old female presenting for foreign body sensation in the throat x 2 days. States this began after she was around cats and states she is very allergic to cats however has never needed epinephrine. Also reports tingling in her lips. States this did not begin after any particular meal, is unsure if there is a food bolus stuck. Denies eating anything with bones. Denies difficulty breathing or swallowing. Denies nasal congestion, chest pain, shortness of breath. - Related Data Previous Rx's Medication Instructions Recorded predniSONE [Deltasone] 40 mg PO DAILY #10 tab 12/08/24 Allergies Allergy/AdvReac Type Severity Reaction Status Date / Time cat dander Allergy Swelling Verified 12/08/24 19:44 Review of Systems ROS Statement: Those systems with pertinent positive or pertinent negative responses have been documented in the HPI. ROS Other: All systems not noted in ROS Statement are negative. 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 History of Any Multi-Drug Resistant Organisms: None Reported Past Surgical History: Section Past Anesthesia/Blood Transfusion Reactions: No Reported Reaction Additional Past Anesthesia/Blood Transfusion Reaction / Comment(s): no hx blood transfusion Past Psychological History: Anxiety, Depression Smoking Status: Current every day smoker, Vaper Past Alcohol Use History: Occasional Past Drug Use History: Marijuana - Past Family History Mother Family Medical History: No Reported History General Exam Limitations: no limitations General appearance: alert, in no apparent distress Head exam: Present: atraumatic, normocephalic, normal inspection Eye exam: Present: normal appearance, PERRL, EOMI. Absent: scleral icterus, conjunctival injection, periorbital swelling ENT exam: Present: normal exam, mucous membranes moist, other (No visible lip or tongue swelling) Neck exam: Present: normal inspection, full ROM. Absent: tenderness, meningismus, lymphadenopathy Respiratory exam: Present: normal lung sounds bilaterally. Absent: respiratory distress, wheezes, rales, rhonchi, stridor Cardiovascular Exam: Present: regular rate, normal rhythm, normal heart sounds. Absent: systolic murmur, diastolic murmur, rubs, gallop, clicks Neurological exam: Present: alert, oriented X3 Psychiatric exam: Present: normal affect, normal mood Skin exam: Present: warm, dry, intact, normal color. Absent: rash Course Vital Signs 12/08/24 19:40 Temperature 98.3 F Pulse Rate 92 Respiratory 22 Rate Blood Pressure 120/87 O2 Sat by Pulse 99 Oximetry Medical Decision Making - Medical Decision Making Was pt. sent in by a medical professional or institution (, [facility], [facility], urgent care, hospital, or fpc...) When possible be specific @ -No Did you speak to anyone other than the patient for history (EMS, parent, family, police, friend...)? What history was obtained from this source @ -No Did you review nursing and triage notes (agree or disagree)? Why? @ -I reviewed and agree with nursing and triage notes Were old charts reviewed (outside hosp., previous admission, EMS record, old EKG, old radiological studies, urgent care reports/EKG's, fpc records)? Report findings @ -No old charts were reviewed Differential Diagnosis (chest pain, altered mental status, abdominal pain women, abdominal pain men, vaginal bleeding, weakness, fever, dyspnea, syncope, headache, dizziness, GI bleed, back pain, seizure, CVA, palpatations, mental health, musculoskeletal)? @ -Allergic reaction, anaphylaxis, angioedema, foreign body in throat EKG interpreted by me (3pts min.). @ -None X-rays interpreted by me (1pt min.). @ -Soft tissue x-ray reveals no acute process CT interpreted by me (1pt min.). @ -None done U/S interpreted by me (1pt. min.). @ -None done What testing was considered but not performed or refused? (CT, X-rays, U/S, labs)? Why? @ -None What meds were considered but not given or refused? Why? @ -None Did you discuss the management of the patient with other professionals (professionals i.e. [facility] Prajapati, [facility], lab, RT, psych nurse, social services coordinator, dry house attendant, teacher, bomb squad officer, spring encaser)? Give summary @ -No Was smoking cessation discussed for >3mins.? @ -No Was critical care preformed (if so, how long)? @ -No Were there social determinants of health that impacted care today? How? (Homelessness, low income, unemployed, alcoholism, drug addiction, transportation, low edu. Level, literacy, decrease access to med. care, prison, rehab)? @ -No Was there de-escalation of care discussed even if they declined (Discuss DNR or withdrawal of care, Hospice)? DNR status @ -No What co-morbidities impacted this encounter? (DM, HTN, Smoking, COPD, CAD, Cancer, CVA, ARF, Chemo, Hep., AIDS, mental health diagnosis, sleep apnea, morbid obesity)? @ -None Was patient admitted / discharged? Hospital course, mention meds given and route, prescriptions, significant lab abnormalities, going to OR and other pertinent info. @ -Discharge. 21-year-old female presenting for foreign body sensation in throat x 2 days. Given symptoms began after exposure to cat dander and patient does have severe allergy to cats, I highly suspect symptoms are allergic in nature. Provided with steroids and Benadryl. Patient is negative for strep pharyngitis, COVID-19, influenza, and RSV. Soft tissue x-ray neck reveals no acute process. Upon reevaluation, patient reports significant improvement of symptoms. Patient can be safely discharged home with strict return precautions. Provided with outpatient course of prednisone and advised to continue over-th e-counter Benadryl. Case was discussed with my ED attending Dr. Samano. Undiagnosed new problem with uncertain prognosis? @ -No Drug Therapy requiring intensive monitoring for toxicity (Heparin, Nitro, Insulin, Cardizem)? @ -No Were any procedures done? @ -No Diagnosis/symptom? @ -Allergic reaction Acute, or Chronic, or Acute on Chronic? @ -Acute Uncomplicated (without systemic symptoms) or Complicated (systemic symptoms)? @ -Uncomplicated Side effects of treatment? @ -No Exacerbation, Progression, or Severe Exacerbation? @ -No Poses a threat to life or bodily function? How? (Chest pain, [place], [place], pneumonia, PE, COPD, DKA, ARF, appy, cholecystitis, CVA, Diverticulitis, Homicidal, Suicidal, threat to staff... and all critical care pts) @ -Not at this time - Lab Data Lab Results 12/08/24 12/08/24 Range/Units 21:21 21:21 Influenza Type A (PCR) Not Detected (Not Detectd) Influenza Type B (PCR) Not Detected (Not Detectd) RSV (PCR) Not Detected (Not Detectd) SARS-CoV-2 (PCR) Not Detected (Not Detectd) Group A Strep (PCR) NOT DETECTED (Not Detectd) Disposition Clinical Impression: Allergic reaction Disposition: HOME SELF-CARE Condition: Stable Additional Instructions: Take prednisone once daily for 5 days as directed. Continue Benadryl every 6 hours. Please return to the Emergency Department if symptoms worsen or any other concerns. Prescriptions: predniSONE [Deltasone] 40 mg PO DAILY #10 tab Is patient prescribed a controlled substance at d/c from ED?: No Referrals: Divine Aviles PAC [Primary Care Provider] - 1-2 days Time of Disposition: 22:34
--- NOTE | 2024-12-08 21:08 | XR ---
EXAMINATION TYPE: XR soft tissue neck DATE OF EXAM: 12/08/2024 8:57 PM CLINICAL INDICATION:Female, 29 years old with history of foreign body sensation in throat; [facility] COMPARISON: CT cervical spine 08/19/2022 TECHNIQUE: The soft tissues of the neck were imaged in frontal and lateral views. FINDINGS: The prevertebral soft tissues are unremarkable. Incidental note of prominent cricoid cartil age calcification similar to the CT C-spine in reference. There is no evidence of mass effect or trac heal deviation. No acute osseous abnormality demonstrated. No evidence of subglottic narrowing. IMPRESSION: No significant abnormality identified within the soft tissues of the neck. [facility], , 12/08/2024 9:06 PM
[2024-12-08] MEDS: dexAMETHasone ORAL SOLUTION 4 MG/ML VIAL PO ONE (21:14)
[2024-12-08] MEDS: diphenhydrAMINE 50 MG/ML 1 ML VIAL IM STA (21:16)
[2024-12-08 22:08] LABS: RSV Not Detected (Not Detectd)
[2024-12-08 22:55] VITALS: BP 119/83; PULSE 89; RESP 20; TEMP 98.4
== END 2024-12-08 22:55 | disposition home or self-care (01) ==
LOC: EC 19:22
DX: J30.81 Allergic rhinitis due to animal (cat) (dog) hair and dander (principal); F17.290 Nicotine dependence, other tobacco product, uncomplicated; Z88.8 Allergy status to other drugs, medicaments and biological substances
CPT/HCPCS: 87651; 87636; 70360; 99285; 96372; J1200; J8540